=== PATIENT | male | born 1945 | race Caucasian/White ===

== ENCOUNTER → 2018-10-27 09:59 | Outpatient (CLI) | payer MEDICARE | END | disposition home or self-care (01) | LOC: D.HCCARDIO 09:59 | PROVIDERS: ATTEND Internal Medicine Cardiovascular Disease | DX: I25.810 Atherosclerosis of coronary artery bypass graft(s) without angina pectoris (principal) ==

== ENCOUNTER 2020-04-14 07:39 | Day surgery (SDC) | payer MEDICARE ==
[~2020-04-14] VITALS: Ht 188 cm; Wt 77.6 kg
[~2020-04-14 07:39] MED LIST: BACTRIM DS TAB1 EAC1 PO; LYRICA100 MG PO; METHOCARBAMOL500 MG PO; NEURONTIN600 MG PO; PROSCAR5 MG PO
[2020-04-14 08:05] LABS: HEMATOCRIT 44.1 % (42.0-54.0); HEMOGLOBIN 14.6 g/dL (13.5-17.5); MCH 29.9 pg (26.0-34.0); MCHC 33.1 g/dL (31.0-37.0); MCV 90.4 fL (80.0-100.0); MEAN PLATELET VOLUME 9.3 fL (7.4-10.4); RBC 4.88 10x6/uL (4.20-6.10); RDW 13.7 % (11.5-14.5); WBC 4.8 10x3/uL (4.8-10.8)
[2020-04-14 08:55] VITALS: BP 128/58; Ht 188 cm; Wt 77.6 kg
--- NOTE | 2020-04-14 13:07 | OP ---
PATIENT NAME: MARIANNE WILSON MEDICAL RECORD: [id number] :43 LOCATION:[facility] ADMISSION DATE: SURGEON: LEW SCHOFIELD MD DATE OF OPERATION: 04/14/2020 SURGEON: Lew Schofield MD ANESTHESIA: TIVA by Guille Mercedes CRNA. DIAGNOSIS: Elevated PSA of 2.4, on finasteride. PROCEDURE: Transrectal ultrasound (TRUS) and prostate biopsy. FINDINGS: On transrectal ultrasound, 37 gram prostate with intraprostatic stones. ESTIMATED BLOOD LOSS: Minimal. SPECIMENS: Prostate biopsy cores. CLINICAL HISTORY: This is a 74-year-old male who has an elevated PSA of 2.4 on finasteride. Finasteride typically cut the PSA down to one-half of what it would be without the finasteride. Therefore, the patient was not on finasteride. His PSA would be around 4.8. He has no significant voiding symptoms. He was given Ancef 2 grams IV mortgage protection sales to the OR. DESCRIPTION OF PROCEDURE: The patient was given IV sedation. He was placed into lithotomy position. The transrectal ultrasound probe was introduced. Prostate size measurements were obtained at 37 grams. Sextant biopsies were obtained with at least 3 cores from each sextant. Once the procedure was done, the patient was awakened and brought back to the preoperative holding area. I will see him next week at [facility] to review his pathology with him. TRANSINT:[id number] Voice Confirmation ID: [id number] DOCUMENT ID: [id number] LEW SCHOFIELD MD at 1307 CC: [id number] DICTATION DATE: 04/14/20 1219 EMPLOYEE BENEFITS ATTORNEY: 04/14/[address] [facility] [address] [id number]
--- NOTE | 2020-04-14 14:06 | NUR ---
1214 RECEIVED REPORT AT BEDSIDE FROM KHANH KIDD CRNA. 1259 IV DC'D. CATHETER TIP INTACT. NO BLEEDING AT SITE AFTER HOLDING PRESSURE. COBAN DRESSING APPLIED TO SITE.
--- NOTE | 2020-04-14 14:08 | NUR ---
1300 REVIEWED DISCHARGE INSTRUCTIONS WITH PATIENT AND HIS . BOTH VOICE UNDERSTANDING OF INSTRUCTIONS.
== END 2020-04-14 13:05 | disposition home or self-care (01) ==
LOC: D.OPS 07:39
PROVIDERS: Anesthesiology; ATTEND Urology
DX: R97.20 Elevated prostate specific antigen [PSA] (principal); N40.1 Benign prostatic hyperplasia with lower urinary tract symptoms